=== PATIENT | female | born 1950 | race Caucasian/White ===

== ENCOUNTER 2018-09-08 05:51 | Inpatient (IN) | payer OTHER ==
[2018-09-08] MEDS: CEFAZOLIN 2 GM/50 ML (PMX) 50 ML IVPB ×3 (06:00→21:33)
[2018-09-08] MEDS ORDERED: NEOSTIGMINE 10 MG INJ (07:00)
[2018-09-08] MEDS ORDERED: GLYCOPYRROLATE 0.4 MG INJ (07:00)
[2018-09-08] MEDS ORDERED: ROCURONIUM 50 MG INJ (07:00)
[2018-09-08] MEDS: SOD CHLORIDE 0.9% 1,000 ML IV ×3 (07:16→21:33)
[2018-09-08] MEDS ORDERED: OXYCODONE/ACETAMINOPHEN (5/325) TAB PO (08:00)
[2018-09-08] MEDS ORDERED: DIPHENHYDRAMINE 50 MG INJ IV (08:00)
[2018-09-08] MEDS ORDERED: PROCHLORPERAZINE 10 MG INJ IV (08:00)
[2018-09-08] MEDS ORDERED: FENTAnyl 50 MCG/ML VIAL IV (08:00)
[2018-09-08] MEDS ORDERED: MIDAZOLAM 1 MG/ML 2 ML INJ (08:11)
[2018-09-08] MEDS ORDERED: SUCCINYLCHOLINE CHLORIDE 100 MG/5 ML SYG IV (08:11)
[2018-09-08] MEDS ORDERED: LIDOCAINE 2% (SDV) 5 ML INJ (08:11)
[2018-09-08] MEDS ORDERED: PROPOFOL 20 ML (08:11)
[2018-09-08] MEDS ORDERED: CEFAZOLIN 1 GM INJ (08:18)
[2018-09-08] MEDS ORDERED: ONDANSETRON 4 MG INJ ×2 (08:29→10:28)
[2018-09-08] MEDS ORDERED: FAMOTIDINE 20 MG INJ (08:29)
[2018-09-08] MEDS: BUPIVACAINE 0.25% (MPF) 30 ML INJ (10:14)
[2018-09-08] MEDS ORDERED: MEPERIDINE 25 MG INJ (10:28)
[2018-09-08] MEDS ORDERED: HYDROmorphONE 1 MG/5 ML IV SYRINGE IV (10:29)
[2018-09-08] MEDS: ONDANSETRON 4 MG INJ IV (10:40)
[2018-09-08] MEDS: MEPERIDINE 25 MG INJ IV (10:40)
[2018-09-08] MEDS: HYDROmorphONE 1 MG/5 ML IV SYRINGE IV ×2 (10:54→11:00)
[2018-09-08 10:56] LABS: ADD MAN DIFF? NO
[2018-09-08 11:02] LABS: WHITE BLOOD COUNT 4.8 10^3/ul (4.8-10.8)
[2018-09-08 11:02] LABS: BASOPHILS % 0.4 % (0.0-2.0); EOSINOPHILS # 0.1 10^3/ul (0.0-0.5); EOSINOPHILS % 1.9 % (0.0-7.0); HEMATOCRIT 37.8 % (37.0-47.0); HEMOGLOBIN 12.1 g/dl (12.0-16.0); LYMPHOCYTES # 1.3 10^3/ul (0.8-2.9); LYMPHOCYTES % 27.5 % (15.0-51.0); MEAN CORPUSCULAR HEMOGLOBIN 28.5 pg (29.0-33.0); MEAN CORPUSCULAR VOLUME 89.2 fl (82.0-101.0); MEAN PLATELET VOLUME 10.7 fl (7.4-10.4); MONOCYTE # 0.4 10^3/ul (0.3-0.9); MONOCYTES % 7.8 % (0.0-11.0); NEUTROPHILS % 62.2 % (39.0-77.0); PLATELET COUNT 168 10^3/UL (140-415); RED BLOOD COUNT 4.24 10^6/ul (4.20-5.40); RED CELL DISTRIBUTION WIDTH 12.5 % (11.5-14.5)
[2018-09-08 11:22] LABS: ALANINE AMINOTRANSFERASE 40 IU/L (13-69); ALBUMIN 4.1 g/dl (3.3-4.9); ALBUMIN/GLOBULIN RATIO 1.36; ALKALINE PHOSPHATASE 126 IU/L (42-121); ANION GAP 7 (5-13); ASPARTATE AMINO TRANSFERASE 39 IU/L (15-46); BILIRUBIN,INDIRECT 0.3 mg/dl (0-1.1); BILIRUBIN,TOTAL 0.3 mg/dl (0.2-1.3); BLOOD UREA NITROGEN 11 mg/dl (7-20); CARBON DIOXIDE 25 mmol/L (21-31); CHLORIDE 112 mmol/L (97-110); CREATININE 0.47 mg/dl (0.44-1.00); Estimated GFR > 60 mL/min (>60); GLUCOSE 161 mg/dl (70-220); POTASSIUM 4.1 mmol/L (3.5-5.1); SODIUM 144 mmol/L (135-144); TOTAL PROTEIN 7.1 g/dl (6.1-8.1)
[2018-09-08 11:26] LABS: CALCIUM 11.3 mg/dl (8.4-10.2)
[2018-09-08] MEDS: HYDROCODONE/APAP (5/325) TAB PO ×2 (12:34→21:32)
[2018-09-08] MEDS ORDERED: hydrALAzine 20 MG INJ IV (17:00)
[2018-09-08] MEDS: morphine 2 MG INJ IV (17:06)
[2018-09-08] MEDS: metFORMIN 500 MG TAB PO (17:06)
[2018-09-08] MEDS: INSULIN ASPART [NOVOLOG] 3 ML PEN SC ×2 (17:07→21:00)
[2018-09-08] MEDS: ATORVASTATIN 10 MG TAB PO (21:32)
[2018-09-09] MEDS: CEFAZOLIN 2 GM/50 ML (PMX) 50 ML IVPB (05:40)
[2018-09-09] MEDS: HYDROCODONE/APAP (5/325) TAB PO (05:41)
[2018-09-09 07:08] LABS: ADD MAN DIFF? NO
[2018-09-09 07:14] LABS: BASOPHILS % 0.2 % (0.0-2.0); EOSINOPHILS # 0.1 10^3/ul (0.0-0.5); EOSINOPHILS % 1.1 % (0.0-7.0); HEMATOCRIT 34.2 % (37.0-47.0); HEMOGLOBIN 10.9 g/dl (12.0-16.0); LYMPHOCYTES # 1.2 10^3/ul (0.8-2.9); LYMPHOCYTES % 18.4 % (15.0-51.0); MEAN CORPUSCULAR HEMOGLOBIN 28.2 pg (29.0-33.0); MEAN CORPUSCULAR HGB CONC 31.9 g/dl (32.0-37.0); MEAN CORPUSCULAR VOLUME 88.6 fl (82.0-101.0); MEAN PLATELET VOLUME 10.3 fl (7.4-10.4); MONOCYTE # 0.7 10^3/ul (0.3-0.9); MONOCYTES % 11.1 % (0.0-11.0); NEUTROPHIL # 4.5 10^3/ul (1.6-7.5); PLATELET COUNT 152 10^3/UL (140-415); RED BLOOD COUNT 3.86 10^6/ul (4.20-5.40)
[2018-09-09 07:14] LABS: WHITE BLOOD COUNT 6.6 10^3/ul (4.8-10.8)
[2018-09-09 07:30] LABS: ALANINE AMINOTRANSFERASE 35 IU/L (13-69); ALBUMIN 3.6 g/dl (3.3-4.9); ALBUMIN/GLOBULIN RATIO 1.24; ALKALINE PHOSPHATASE 94 IU/L (42-121); ANION GAP 8 (5-13); ASPARTATE AMINO TRANSFERASE 28 IU/L (15-46); BILIRUBIN,INDIRECT 0.4 mg/dl (0-1.1); BILIRUBIN,TOTAL 0.4 mg/dl (0.2-1.3); BLOOD UREA NITROGEN 11 mg/dl (7-20); CALCIUM 9.1 mg/dl (8.4-10.2); CARBON DIOXIDE 26 mmol/L (21-31); CHLORIDE 106 mmol/L (97-110); CREATININE 0.64 mg/dl (0.44-1.00); Estimated GFR > 60 mL/min (>60); GLUCOSE 140 mg/dl (70-220); SODIUM 140 mmol/L (135-144); TOTAL PROTEIN 6.5 g/dl (6.1-8.1)
[2018-09-09] MEDS: INSULIN ASPART [NOVOLOG] 3 ML PEN SC ×4 (08:00→20:39)
[2018-09-09] MEDS: SOD CHLORIDE 0.9% 1,000 ML IV ×2 (08:11→18:39)
[2018-09-09] MEDS: metFORMIN 500 MG TAB PO ×2 (08:48→17:14)
[2018-09-09] MEDS: LOSARTAN 50 MG TAB PO (08:48)
[2018-09-09] MEDS: ACETAMINOPHEN 500 MG TAB PO ×2 (10:54→20:41)
[2018-09-09] MEDS: GABAPENTIN 100 MG CAP NGT ×2 (17:12→20:39)
[2018-09-09 18:08] LABS: ANION GAP 7 (5-13); BLOOD UREA NITROGEN 13 mg/dl (7-20); CALCIUM 9.5 mg/dl (8.4-10.2); CARBON DIOXIDE 29 mmol/L (21-31); CHLORIDE 105 mmol/L (97-110); CREATININE 0.76 mg/dl (0.44-1.00); Estimated GFR > 60 mL/min (>60); GLUCOSE 114 mg/dl (70-220); MAGNESIUM 1.9 mg/dl (1.7-2.5); POTASSIUM 4.5 mmol/L (3.5-5.1); SODIUM 141 mmol/L (135-144)
[2018-09-09] MEDS: ATORVASTATIN 10 MG TAB PO (20:39)
[2018-09-10] MEDS: SOD CHLORIDE 0.9% 1,000 ML IV ×3 (02:40→12:31)
[2018-09-10] MEDS: INSULIN ASPART [NOVOLOG] 3 ML PEN SC ×3 (08:00→17:27)
[2018-09-10] MEDS: GABAPENTIN 100 MG CAP NGT ×2 (08:05→20:17)
[2018-09-10] MEDS: metFORMIN 500 MG TAB PO ×2 (08:06→17:27)
[2018-09-10] MEDS: LOSARTAN 50 MG TAB PO (12:24)
[2018-09-10 12:28] LABS: T4 (THYROXINE) 9.7 ug/dl (5.5-11.0)
[2018-09-10 12:42] LABS: THYROID STIMULATING HORMONE 0.192 MIU/L (0.465-4.680)
[2018-09-10] MEDS: ATORVASTATIN 10 MG TAB PO (20:17)
[2018-09-11 23:33] LABS: PTH CALCIUM 11.1 mg/dL (8.6-10.4)
[2018-09-14 00:46] LABS: PTH INTACT 68 pg/mL (14-64)
== END 2018-09-10 21:20 | disposition home or self-care (01) | DRG 624 ==
LOC: REC 05:51 → 5EC 11:33
PROVIDERS: Surgery
PROC: 0GBH0ZZ Excision of Right Thyroid Gland Lobe, Open Approach (ICD-10-PCS; principal; 2018-09-08 08:00)
PROC: 0HX4XZZ Transfer Neck Skin, External Approach (ICD-10-PCS; 2018-09-08 08:00)
DX: E21.3 Hyperparathyroidism, unspecified (principal); I10 Essential (primary) hypertension; E78.5 Hyperlipidemia, unspecified; E11.9 Type 2 diabetes mellitus without complications; R00.1 Bradycardia, unspecified
CPT/HCPCS: 80048; 80053; 82962; 83735; 83970; 84436; 84443; 85025; 88307; 88331; 90686; 93005

== ENCOUNTER 2019-02-16 03:13 | Emergency (ER) | payer OTHER ==
[2019-02-16 03:59] LABS: ADD MAN DIFF? NO
[2019-02-16 04:04] LABS: WHITE BLOOD COUNT 5.8 10^3/ul (4.8-10.8)
[2019-02-16 04:05] LABS: BASOPHILS % 0.5 % (0.0-2.0); EOSINOPHILS # 0.1 10^3/ul (0.0-0.5); EOSINOPHILS % 1.7 % (0.0-7.0); HEMATOCRIT 41.1 % (37.0-47.0); HEMOGLOBIN 13.7 g/dl (12.0-16.0); LYMPHOCYTES # 1.9 10^3/ul (0.8-2.9); LYMPHOCYTES % 32.5 % (15.0-51.0); MEAN CORPUSCULAR HEMOGLOBIN 28.4 pg (29.0-33.0); MEAN CORPUSCULAR HGB CONC 33.3 g/dl (32.0-37.0); MEAN CORPUSCULAR VOLUME 85.1 fl (82.0-101.0); MEAN PLATELET VOLUME 10.4 fl (7.4-10.4); MONOCYTE # 0.5 10^3/ul (0.3-0.9); MONOCYTES % 9.1 % (0.0-11.0); NEUTROPHIL # 3.3 10^3/ul (1.6-7.5); NEUTROPHILS % 55.9 % (39.0-77.0); PLATELET COUNT 188 10^3/UL (140-415); RED BLOOD COUNT 4.83 10^6/ul (4.20-5.40); RED CELL DISTRIBUTION WIDTH 12.6 % (11.5-14.5)
[2019-02-16] MEDS: SOD CHLORIDE 0.9% 500 ML IV (04:13)
[2019-02-16] MEDS: METOCLOPRAMIDE 10 MG INJ IV (04:14)
[2019-02-16] MEDS: KETOROLAC 30 MG INJ IV (04:32)
[2019-02-16 04:36] LABS: ANION GAP 9 (5-13); BLOOD UREA NITROGEN 8 mg/dl (7-20); CALCIUM 10.8 mg/dl (8.4-10.2); CARBON DIOXIDE 25 mmol/L (21-31); CHLORIDE 107 mmol/L (97-110); CREATININE 0.51 mg/dl (0.44-1.00); Estimated GFR > 60 mL/min (>60); GLUCOSE 136 mg/dl (70-220); SODIUM 141 mmol/L (135-144)
== END 2019-02-16 05:35 | disposition home or self-care (01) ==
LOC: E/R 03:13
DX: R51 Headache (principal); R20.2 Paresthesia of skin; I10 Essential (primary) hypertension; E11.9 Type 2 diabetes mellitus without complications; Z79.82 Long term (current) use of aspirin; Z79.84 Long term (current) use of oral hypoglycemic drugs
CPT/HCPCS: 36415; 70450; 80048; 81025; 85025; 93005; 96374; 96375; 99285-25